=== PATIENT | male | born 1945 | race Caucasian/White ===

== ENCOUNTER 2023-04-24 15:28 | Emergency (ER) | payer MEDICAID, OTHER ==
[~2023-04-24] VITALS: Ht 177.8 cm; Wt 71.7 kg
[2023-04-24 18:54] LABS: APPEARANCE,URINE CLOUDY (CLEAR); BILIRUBIN,URINE NEGATIVE (NEGATIVE); BLOOD, URINE 3+ Ery/uL (NEGATIVE); COLOR,URINE YELLOW (YELLOW); KETONES,URINE NEGATIVE (NEGATIVE); LEUKOCYTE ESTERASE ,URINE TRACE (NEGATIVE); NITRITE, URINE POSITIVE (NEGATIVE); PROTEIN,URINE 2+ mg/dl (NEGATIVE); UGLUCOSE NEGATIVE (NEGATIVE)
[2023-04-24] MEDS ORDERED: CEPH500C2 PO (19:33)
[2023-04-24] MEDS ORDERED: CEPHALEXIN MONOHYDRATE 500 MG CAPSULE PO ONE (20:12)
[2023-04-24] MEDS: CEPHALEXIN MONOHYDRATE 500 MG CAPSULE PO ONE (20:14)
[2023-04-24 20:28] LABS: ADD URINE CULTURE YES; BACTERIA,URINE 1+ /HPF (None Seen); RBC,URINE 51-80 /HPF (0-2); SQUAMOUS EPITHELIAL CELL,UR 0-2 /HPF (None Seen)
[2023-04-24 21:06] VITALS: BP 121/86; TEMP 98.2; O2SAT 98
== END 2023-04-24 21:07 | disposition home or self-care (01) ==
LOC: ER 15:28
DX: N40.1 Benign prostatic hyperplasia with lower urinary tract symptoms (principal); N13.9 Obstructive and reflux uropathy, unspecified
CPT/HCPCS: 81001; 87086-TC

== ENCOUNTER 2024-01-17 15:38 | Emergency (ER) | payer MEDICAID, OTHER ==
[~2024-01-17] VITALS: Ht 175.3 cm; Wt 77.6 kg
[~2024-01-17 15:38] MED LIST: CEPH500C2 PO
[2024-01-17 15:48] VITALS: BP 134/69; TEMP 97.8; O2SAT 99
[2024-01-17] MEDS ORDERED: cetrizine 10 MG TABLET ONE (16:46)
[2024-01-17] MEDS ORDERED: AZITHROMYCIN 250 MG TABLET ONE (16:46)
[2024-01-17] MEDS: cetrizine 10 MG TABLET PO ONE (16:59)
[2024-01-17] MEDS: AZITHROMYCIN 250 MG TABLET PO ONE (16:59)
[2024-01-17] MEDS ORDERED: CETI-108 PO (17:18)
[2024-01-17] MEDS ORDERED: AZIT250T13 PO (17:18)
== END 2024-01-17 17:31 | disposition home or self-care (01) ==
LOC: ER 15:41
DX: J18.9 Pneumonia, unspecified organism (principal); R05.9 Cough, unspecified; R50.9 Fever, unspecified; R07.9 Chest pain, unspecified; Z87.438 Personal history of other diseases of male genital organs
CPT/HCPCS: 71045-TC

== ENCOUNTER 2025-01-13 11:49 | Emergency (ER) | payer MEDICAID, OTHER ==
[~2025-01-13] VITALS: Ht 167.6 cm; Wt 78.0 kg
[~2025-01-13 11:49] MED LIST changes: +AZIT250T13 PO; +CETI-108 PO
[2025-01-13 12:07] VITALS: TEMP 98.6
[2025-01-13 12:43] LABS: PLATELET COUNT (AUTO) 330 K/uL (150-450); RED BLOOD CELL COUNT(AUTO) 5.01 MIL/uL (4.5-6.0); RED CELL DISTRIBUTION WIDTH 12.8 % (11.5-15.0); WHITE BLOOD COUNT (AUTO) 7.6 K/uL (4.3-11.0)
[2025-01-13] MEDS ORDERED: MECLIZINE HCL 25 MG TABLET ONE (12:46)
[2025-01-13] MEDS: MECLIZINE HCL 25 MG TABLET PO ONE (12:54)
[2025-01-13 13:03] LABS: CALCIUM, SERUM 9.2 mg/dL (8.5-10.1); CREATININE 0.8 mg/dL (0.6-1.3); SODIUM SERUM 136 mmol/L (136-145); UREA NITROGEN, BLOOD 11 mg/dL (7-18)
[2025-01-13 13:09] LABS: ASPARTATE AMINOTRANSFERASE 16 U/L (15-37); TOTAL PROTEIN, SERUM 7.9 g/dL (6.4-8.2)
[2025-01-13 13:10] LABS: APPEARANCE,URINE CLEAR (CLEAR); BLOOD, URINE TRACE-INTA Ery/uL (NEGATIVE); LEUKOCYTE ESTERASE ,URINE TRACE (NEGATIVE); NITRITE, URINE NEGATIVE (NEGATIVE); UGLUCOSE NEGATIVE (NEGATIVE)
[2025-01-13 13:28] LABS: ADD URINE CULTURE YES; SQUAMOUS EPITHELIAL CELL,UR Rare /HPF (None Seen)
[2025-01-13] MEDS ORDERED: CEPH500C2 PO (13:42)
[2025-01-13 14:00] VITALS: BP 126/68; O2SAT 97
== END 2025-01-13 14:01 | disposition home or self-care (01) ==
LOC: ER 11:59
DX: N39.0 Urinary tract infection, site not specified (principal); R42 Dizziness and giddiness; Z79.899 Other long term (current) drug therapy
CPT/HCPCS: 99284; 70450; 93005; 85025; 80048; 87086; 80076; 81001; 36415; J8597